=== PATIENT | male | born 1985 ===

== ENCOUNTER 2023-08-17 13:19 | Emergency (ER) | payer OTHER, SELFPAY ==
[2023-08-17 13:24] VITALS: BP 136/73; PULSE 77; RESP 18; TEMP 37.3; O2SAT 97; BMI 32.0
--- NOTE | 2023-08-17 13:27 | ED.GENADULT ---
HPI - General Adult General Chief complaint: Upper Respiratory Symptoms Stated complaint: SOB Time Seen by Provider: 08/17/23 13:40 Source: patient Mode of arrival: ambulatory Limitations: no limitations History of Present Illness HPI narrative: 38-year-old male with no known medical history presents to the ER with complaints of nasal congestion, cough which is productive with yellow sputum, chest discomfort with coughing shortness of breath the last 5 days. Patient denies any fevers, chills, vomiting, diarrhea, skin rash, headache, neck pain or neck stiffness. Patient denies any recent travel or sick contact. No leg swelling or leg pain. No history of PE or DVT. No history of same. +smoking history Related Data Previous Rx's Medication Instructions Recorded azithromycin 250 mg tablet See Rx Instructions PO .COMPLEX #6 08/17/23 tabs benzonatate 200 mg capsule 200 mg PO TID PRN cough #15 caps 08/17/23 prednisone 20 mg tablet 40 mg (2 x 20 mg) PO DAILY #10 tabs 08/17/23 Allergies Allergy/AdvReac Type Severity Reaction Status Date / Time No Known Allergies Allergy Verified 08/17/23 13:23 Review of Systems Review of Systems: Yes all other systems are reviewed and are negative Constitutional: Constitutional: Reports no additional constitutional complaints, Denies body ache(s), Denies chills, Denies fever(s), Denies headache(s) and Denies weakness Eyes: Eyes: Reports no additional eye complaints and Denies change in vision ENT: Reports system reviewed and no additional complaints, except as documented, Denies dizziness, Denies headache(s), Reports nasal congestion, Denies nasal discharge and Denies neck pain Cardiovascular: Cardiovascular: Reports no additional cardiovascular complaints, Reports chest pain, Denies leg edema and Reports dyspnea Respiratory: Respiratory: Reports no additional respiratory complaints, Reports cough and Reports dyspnea Gastrointestinal: Gastrointestinal: Reports no additional gastrointestinal complaints, Denies abdominal pain, Denies diarrhea, Denies nausea and Denies vomiting Genitourinary: Genitourinary: Denies urinary incontinence Musculoskeletal: Musculoskeletal: Reports no additional musculoskeletal complaints, Denies back pain, Denies arthralgias, Denies joint swelling, Denies neck pain, Denies numbness and Denies tingling Integumentary/Breasts: Skin/Breast: Reports system reviewed and no additional complaints, except as docu and Denies rash Neurologic: Reports system reviewed and no additional complaints, except as documented, Denies Abnormal speech present, Denies dizziness, Denies headache(s), Denies numbness, Denies tingling and Denies weakness PMFSH Past Medical History Attestation statement: The following information was validated with the patient. Source: old records reviewed and nursing notes reviewed Social History Social History Advance Directives: No Advance Directives Information Provided: Yes Physical Exam ED Vital Signs: Vital Signs - 24 hr 08/17/23 13:24 08/17/23 15:06 Temperature 99.1 F Pulse Rate 77 77 Respiratory Rate 18 18 Blood Pressure 136/73 Pulse Oximetry 97 Oxygen Delivery Method Room Air BMI result Body Mass Index 32.0 Const General: cooperative, healthy appearing, comfortable and no acute distress Orientation/consciousness: patient oriented x3 Limitations: no limitations HENMT Head: Yes normal to inspection Ears: hearing grossly normal bilaterally and TM's normal bilaterally General nose exam: Normal external nose present Face and sinus: Yes normal facial exam Mouth: Normal oral and palatal mucosa present Throat: Yes posterior oropharynx normal and Yes tonsils normal Eyes General: appearance normal, both eyes and all related structures Pupils: Equal, round and reactive pupils present Neck Neck: Yes normal visual inspection, Yes full ROM and Yes no lymphadenopathy Chest Chest palpation & inspection: normal inspection of the chest Resp Other: mild exp wheezing Chest tender to palpation Effort & Inspection: normal respiratory effort Cardio Rate: regular rate Rhythm: regular rhythm Peripheral pulses: Peripheral pulses 2+ throughout GI Inspection: Yes normal to inspection Palpation (GI): Soft to palpation and nontender Auscultation: normal bowel sounds Back/Spine/Pelvis Thoracic/Lumbar Spine: thoracic and lumbar spine normal to inspection Skin General skin exam: no rashes or lesions noted Neuro General: patient oriented x3, no focal motor deficits and normal sensation to monofilament Cranial nerves: Yes Equal, round and reactive pupils present Cognition (Neuro): normal cognition Speech: No Abnormal speech present Gait exam (Neuro): Normal gait present Motor exam (neuro): 5/5 motor strength present throughout Extrem General: Yes normal to inspection, Yes no pedal edema and Yes no calf tenderness Course Course Course Narrative: RME: 38 yold male presents to the ED for coughing, SOB, coughing yellow phelgh, runny nose, bodyaches, and chills. Swabs and Chest xray ordere Reevaluation(s) Reevaluation #1: x-ray shows no signs of infection. Viral testing is negative. Patient has some mild wheezing which improved with albuterol. Will discharge home with prednisone, oral antibiotics, cough suppressant. Reviewed worrisome signs and symptoms and when to return to the emergency room. Comfortable plan for discharge home. Medications Administered Discontinued Medications Generic Name Dose Route Start Last Admin Trade Name Du PRN Reason Stop Dose Admin Albuterol Sulfate 4 puff 08/17/23 14:24 08/17/23 15:06 Albuterol Sulfate 90 Mcg 8 Gm Inhaler INHALE 08/17/23 14:25 4 puff ONCE ONE Administration Medical Decision Making Medical Decision Making [facility] Narrative: 38-year-old male with no known medical history presents to the ER with complaints of nasal congestion, cough which is productive with yellow sputum, chest discomfort with coughing shortness of breath the last 5 days. Patient denies any fevers, chills, vomiting, diarrhea, skin rash, headache, neck pain or neck stiffness. Patient denies any recent travel or sick contact. No leg swelling or leg pain. No history of PE or DVT. No history of same. +smoking history On exam patient has mild expiratory wheezing. He has chest discomfort with coughing, deep breathing and palpation on exam. Vitals are stable. We will send viral testing, obtain chest x-ray will give albuterol Differential Diagnosis Differential Diagnoses: The differential diagnosis associated with the presentation includes viral syndrome, pneumonia, bronchitis low concern for PE with perc 0 Admission/Observation Consideration of admission/observation: Escalation of care including admission/observation considered No hypoxia or tachypnea requiring supplemental oxygen and or admission. Lab Data [facility] Lab Attestation statement: I reviewed the patient's lab results. testing for flu, covid, rsv are negative Labs: Lab Results 08/17/23 Range/Units 13:34 Influenza Type A (PCR) NEGATIVE (Negative) Influenza Type B (PCR) NEGATIVE (Negative) RSV RNA Qual (PCR) NEGATIVE (Negative) SARS-CoV-2 RNA (RT-PCR) NEGATIVE (Negative) Independent Interpretation I performed an independent interpretation of an: Plain X-Ray Interpretation: I independently are reviewed the x-ray and agree with radiology report Radiology Impression Discussion of test interpretation with radiology: I have reviewed the radiologist's reading. Radiologist Impression: [id number] [place] [address] XRay Report Signed Patient: Kobi Wooten MR#: [id number] : 1985 Acct:[id number] Age/Sex: 38 / M ADM Date: 08/17/23 Loc: HO.ED Attending Dr: Ordering Physician: Brian Avendano Date of Service: 08/17/23 Procedure(s): XR chest 1V Accession Number(s): [id number] cc: Brian Avendano; Physician,None ~ EXAMINATION: XR CHEST CLINICAL INFORMATION: Coughing, phlegm and SOB. COMPARISON: Chest x-ray 12/13/2008 TECHNIQUE: Frontal view of the chest was obtained. FINDINGS: No significant abnormality is noted involving the heart, lungs, mediastinum, bony thorax or soft tissues. XR/XR chest 1V IMPRESSION: Unremarkable chest examination. Tests considered The following testing was considered but not selected: no need for CTA as perc is 0 Prescription Management I considered prescription management with: Pain Medication and Antibiotic Discharge Plan Discharge Clinical Impression: Bronchitis Patient Disposition: Home, Self-Care Instructions: How to Use a Metered-Dose Inhaler (ED), Acute Bronchitis (ED) Additional Instructions: Use the inhaler 2 puffs every 4 hours as needed Take the medications as prescribed Your COVID testing was negative. Your x-ray shows no signs of pneumonia. Prescriptions: New azithromycin 250 mg tablet See Rx Instructions .ROUTE .COMPLEX Qty: 6 0RF Rx Instructions: For 250 mg dose pack: take 500 mg today (day 1), then 250 mg for 4 days (days 2-5) prednisone 20 mg tablet 40 mg PO DAILY Qty: 10 0RF benzonatate 200 mg capsule 200 mg PO TID PRN (Reason: cough) Qty: 15 0RF Referrals: Physician,None [Primary Care Provider] - 1 week Stand Alone Forms: Work/School Release Interventions: ED Discharge Assessment Last Done: 08/17/23 15:35 Discharge Date/Time: 08/17/23 15:36
[2023-08-17 15:06] VITALS: PULSE 77; RESP 18; O2SAT 97
== END 2023-08-17 15:36 | disposition home or self-care (01) ==
PROVIDERS: Emergency Provider Emergency Medicine
DX: J40 Bronchitis, not specified as acute or chronic (principal); R06.02 Shortness of breath; R09.81 Nasal congestion; R05.9 Cough, unspecified; Z20.822 Contact with and (suspected) exposure to COVID-19; Z11.52 Encounter for screening for COVID-19
CPT/HCPCS: 0241U; 71045; 94640; 99283